=== PATIENT | female | born 1960 | race Caucasian/White ===

== ENCOUNTER → 2017-10-05 08:33 | Day surgery (SDC) | payer MEDICARE ==
[~2017-10-05 08:33] MED LIST: Aspirin 81 mg CHEW TAB* 81 MG TAB.CHEW ONE; Diazepam TAB(*) 5 MG ONE; Iohexol 350 (CONTRAST) 200 ML MDV IV ONE; Lidocaine 1% INJ* 10 MG/ML 30 ML SDV ONE; Midazolam* 1 MG/ML 10 ML VIAL (10 MG) ONE; NS 0.9% 1000 ML* 1,000 ML IV SCH; diPHENhydraMINE PO* 25 MG ONE; fentaNYL* 50 MCG/ML 2 ML VIAL (100 MCG VIAL) ONE; nitroGLYCERIN DRIP* 25,000 MCG/250 ML BTL ONE
[2017-10-05 14:17] VITALS: BP 134/90
--- NOTE | 2017-10-05 14:48 | CATH ---
CC: Dr. Archie Mackay; Dr. Frederic Barnhart.* CARDIAC CATHETERIZATION REPORT: DATE OF PROCEDURE: 10/05/17 INDICATION FOR PROCEDURE: The patient with continued chest discomfort with history of normal Lexiscan stress test in the past, now for definitive assessment of coronary anatomy with ongoing chest discomfort episodes on single drug medical management. PROCEDURE: Left heart catheterization, left ventriculography, coronary arteriography. The patient was interviewed and examined in the holding area of the catheterization lab where the risks and benefits were explained. She understood them and wished to proceed. PRE-CATH LABORATORY RESULTS: Hemoglobin and hematocrit of 15.5 and 44. BUN and creatinine of 8 and 0.8, INR 0.9, potassium 4.5. EQUIPMENT UTILIZED: 1. Left femoral artery sheath, 5-[place] 11 cm sheath. 2. Diagnostic coronary catheters, 5-[place] FL4 and FR4 curve diagnostic catheters. 3. Left heart catheter, a 5-[place] angled pigtail catheter. 4. Closure device, a 5-[place] Mynx closure device. MEDICATIONS GIVEN DURING THE PROCEDURE: Included oral Benadryl and Valium in the holding area as well as intravenous Versed and intracoronary nitroglycerin. DESCRIPTION OF PROCEDURE: The patient was brought to the cardiovascular laboratory where a formal time-out was performed. She was prepped and draped in sterile fashion. The left coronary artery was anesthetized with 1% lidocaine. Left femoral artery was cannulated and the introducer was placed. Coronary arteriography was performed utilizing the 5-[place] FL4 curve and FR4 curve diagnostic catheters. Of note, the patient received intracoronary nitroglycerin into the right coronary artery to reassess the proximal narrowing. Following this, left heart catheterization was performed using an angled pigtail catheter advanced to the ascending aorta where pressure was recorded. The catheter was passed across the aortic valve and the left ventricle where the left ventricular pressure was recorded. Left ventriculography was performed utilizing a power injection of 24 cc of Omnipaque dye at a rate of 12 cc. The catheter was pulled back across the aortic valve to recheck gradient. At the end of the case, an injection was made to the right femoral sheath to assess eligibility to utilize closure device. It was found to be acceptable for this, and as such, a 5-[place] Mynx closure device was deployed with good hemostasis. Total contrast used was 90 cc of Omnipaque dye. The radiation exposure included 4.5 minutes of fluoro time. The air kerma radiation was 621 milligray. The DAP radiation was 3566 microgray per sq.m. RESULTS: LEFT HEART CATHETERIZATION: -Central aortic pressure recorded at 131/83 with a mean of 104. Left ventricular pressure 135 over left ventricular end diastolic pressure of 10. LEFT VENTRICULOGRAPHY: - performed in the PRATER projection revealed a symmetrical contraction in the left ventricle with no focal wall-motion abnormalities. The overall ejection fraction noted to be 55% to 60%. CORONARY ARTERIOGRAPHY: A. Left coronary artery: 1. Left main - calcium was seen in the very distal left main with no significant reduction in luminal caliber. 2. LAD - The proximal LAD had heavy calcification seen. There was mild luminal irregularities, but no significant stenosis. Of note, the true caliber of the vessel given the calcium is difficult to assess, but it showed no significant narrowing compared to continuation of the mid LAD area. There was a very small diffusely narrowed short first diagonal branch. The second diagonal branch had a 35% mid narrowing with it. 3. Circumflex artery - A nondominant vessel supplying a trifurcated marginal branch followed by multiple thin obtuse marginal branches ending in the low lying posterior left ventricular branch. There was a 15% distal mild narrowing seen. B. Right coronary artery - A dominant vessel supplying the PDA and 1 posterior left ventricular branch with perhaps a very small caliber threadlike short last posterior left ventricular branch. The proximal area of the right coronary artery was noted to have a 50% narrowing noted in it that remained unchanged after intracoronary nitroglycerin was administered. There was mild haze just prior to and at the takeoff of the PDA with a narrowing of 35%. The posterior left ventricular branch was noted to have a mid distal narrowing of 80 % noted in a very thin caliber portion of the vessel, which appeared to be under 1.5 mm in diameter. OVERALL ASSESSMENT: Normal left ventricular systolic function with moderate proximal right coronary artery disease and a significant 80% lesion in the mid to distal portion of the posterior left ventricular branch, a vessel size that is not amenable to any type of intervention and subtends a relatively small amount of myocardium. Mild disease seen throughout this left system with calcium noted in the proximal LAD. Clearly at this point in time, medical management is most appropriate with regard to aggressive risk factor management as her cholesterol currently is not well controlled with an LDL in the 160 range. She continues to smoke and needs to stop that as well and we had a lengthy discussion about all of these risk factors and the importance of having to stop smoking in order to avoid further progression, especially in the proximal right coronary artery as well as proximal LAD. She understood this and will be following up with Dr. Barnhart in less than a week's time to go over these results and make further recommendations. I asked her to make sure she takes at least a baby aspirin every day and she will be starting that as well. I urged her to stop smoking as well and make sure she is faithfully taking 40 mg of atorvastatin. Further management will be made for her cardiac status through Dr. Frederic Barnhart and Dr. Archie Mackay. [id number]/[facility] #: [id number] JUICE
== END | disposition home or self-care (01) ==
LOC: CHICATH 08:33
PROVIDERS: ATTEND Internal Medicine Cardiovascular Disease
DX: I20.0 Unstable angina (principal); I25.10 Atherosclerotic heart disease of native coronary artery without angina pectoris; Z72.0 Tobacco use; I73.89 Other specified peripheral vascular diseases; J44.9 Chronic obstructive pulmonary disease, unspecified; E78.5 Hyperlipidemia, unspecified; M81.0 Age-related osteoporosis without current pathological fracture; F31.89 Other bipolar disorder; F10.21 Alcohol dependence, in remission; I73.00 Raynaud's syndrome without gangrene
CPT/HCPCS: 93458; A9270-GY; C1887; J2250; J3010

== ENCOUNTER 2018-03-21 14:27 | Emergency (ER) | payer MEDICARE ==
[2018-03-21 14:56] VITALS: BP 147/94
--- NOTE | 2018-03-21 15:15 | UC ---
Lower Extremity/Ankle HPI - HPI Summary HPI Summary: patient with pain in the right foot for the last week. hx. of low back pain , this pain in her foot is new, no associated dysesthesia in the foot. no hx. of gout or trauma - History of Current Complaint Chief Complaint: UCLowerExtremity Stated Complaint: FOOT PAIN Time Seen by Provider: 03/21/18 15:03 Hx Obtained From: Patient ?: No Onset/Duration: Gradual Onset, Lasting Days Severity Initially: Moderate Severity Currently: Moderate Pain Intensity: 7 Aggravating Factor(s): Standing Alleviating Factor(s): Rest, Elevation Able to Bear Weight: Yes - Risk Factors Gout Risk Factors: Age Over 40, Obesity DVT Risk Factors: Negative Septic Arthritis Risk Factor: Negative - Allergies/Home Medications Allergies/Adverse Reactions: Allergies Allergy/AdvReac Type Severity Reaction Status Date / Time No Known Allergies Allergy Verified 03/21/18 14:56 Home Medications: Home Medications Aspirin 81 mg CHEW TAB* [Aspirin Low Dose TAB*] 81 mg PO DAILY 03/21/18 [ History Confirmed 03/21/18] Umeclidin/Vilant 62.5 MDI(NF) [ANORO 62.5/25 Ellipta DEVICE (NF)] 1 aer IN 03/21 [History] PMH/Surg Hx/FS Hx/Imm Hx Previously Healthy: Yes - Surgical History Surgical History: Yes Surgery Procedure, Year, and Place: tonsillectomy, left rotator cuff, left leg lac, cyst removed from ovary, lesion from exterior head around temperal area removed (plastic surgeron/skin), - Social History Alcohol Use: None Substance Use Type: None Smoking Status (MU): Light Every Day Tobacco Smoker Type: Cigarettes Review of Systems Constitutional: Negative Skin: Negative Eyes: Negative ENT: Negative Respiratory: Negative Cardiovascular: Negative Gastrointestinal: Negative Genitourinary: Negative Motor: Decreased ROM Neurovascular: Negative Musculoskeletal: Other: - pain right foot Neurological: Negative Psychological: Negative Is Patient Immunocompromised?: No All Other Systems Reviewed And Are Negative: Yes Physical Exam Triage Information Reviewed: Yes Appearance: Pain Distress Vital Signs: Initial Vital Signs Temp 36.2 C 03/21/18 14:52 Pulse 78 03/21/18 14:52 Resp 18 03/21/18 14:52 BP 147/94 03/21/18 14:52 Pulse Ox 97 03/21/18 14:52 Vital Signs Reviewed: Yes Eye Exam: Normal ENT Exam: Normal ENT: Positive: Normal ENT inspection Musculoskeletal: Positive: Other: - decreased pulses below popliteal in both legs, good capillary filling in the right foot, minimal swelling noted in the dorsum of the forefoot, tender to palpation. no erythema noted Neurological: Positive: Other: - decreased ankle jerks noted, no sensory abnormality noted to light touch , good strength on dorsiflexion and plantar flexion, ankle inversion and eversion, normal heel walking, unable to walk on toes. Lower Extremity Course/Dx - Differential Dx/Diagnosis Provider Diagnoses: L4-L5 radiculopathy causing foot pain Discharge - Sign-Out/Discharge Documenting (check all that apply): Patient Departure All imaging exams completed and their final reports reviewed: Yes - Discharge Plan Condition: Good Disposition: HOME Patient Education Materials: Lumbar Radiculopathy (ED) Referrals: Archie Mackay MD [Primary Care Provider] - Additional Instructions: nsaids, PT, MRi lumbar spine to assess for need for surgical intervention - Billing Disposition and Condition Condition: GOOD Disposition: Home
--- NOTE | 2018-03-21 15:50 | RAD ---
HISTORY: pain right foot COMPARISONS: None VIEWS: 3 , Frontal, lateral, and oblique views of the right foot FINDINGS: BONE DENSITY: Normal. BONES: There is no displaced fracture. 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 ALIGNMENT: There is no dislocation. SOFT TISSUES: Unremarkable. OTHER FINDINGS: None. IMPRESSION: NO ACUTE OSSEOUS INJURY. IF SYMPTOMS PERSIST, RECOMMEND REPEAT IMAGING.
== END 2018-03-21 16:10 | disposition home or self-care (01) ==
LOC: UCEAST 14:27
DX: M54.16 Radiculopathy, lumbar region (principal); M79.671 Pain in right foot; Z79.82 Long term (current) use of aspirin; F17.210 Nicotine dependence, cigarettes, uncomplicated
CPT/HCPCS: 99211; G0463

== ENCOUNTER 2020-11-19 08:20 | Observation (INO) ==
[2020-11-19 09:40] LABS: ABS Basophils 0.1 10^3/ul (0-0.2); ABS Eosinophils 0.1 10^3/ul (0-0.6); ABS Lymphocytes 2.1 10^3/ul (1.0-4.8); ABS Monocytes 0.6 10^3/ul (0-0.8); Eosinophil % 1.7 %; Hematocrit 44 % (35-47); Hemoglobin 15.3 g/dL (12.0-16.0); Lymphocyte % 26.8 %; Mean Corpuscular HGB Conc 34 g/dL (31-36); Mean Corpuscular Hemoglobin 32 pg (27-31); Mean Corpuscular Volume 91 fL (80-97); Mean Platelet Volume 7.6 fL (7.4-10.4); Platelet Count 294 10^3/uL (150-450); Red Blood Count 4.85 10^6 /uL (3.70-4.87); Red Cell Distribution Width 14 % (10-15)
[2020-11-19 09:53] LABS: ALT 25 U/L (7-52); AST 18 U/L (13-39); Albumin 3.8 g/dL (3.2-5.2); Albumin/Globulin Ratio 1.3 (1-3); Alkaline Phosphatase 112 U/L (35-149); Anion Gap 4 mmol/L (2-11); Blood Urea Nitrogen 11 mg/dL (6-24); CO2 Carbon Dioxide 26 mmol/L (22-32); Calcium 9.2 mg/dL (8.6-10.3); Chloride 109 mmol/L (101-111); EGFR African American 70.3 (>60); EGFR Non-African American 58.1 (>60); Globulin 2.9 g/dL (2-4); Glucose 89 mg/dL (70-100); Potassium 4.2 mmol/L (3.5-5.0); Sodium 139 mmol/L (135-145); Total Protein 6.7 g/dL (6.4-8.9)
[2020-11-19 09:59] LABS: Troponin I 0.07 ng/mL (<0.03)
[2020-11-19] MEDS ORDERED: Magnesium Hydroxide LIQ 30 ML UDC PO PRN (11:47)
[2020-11-19] MEDS ORDERED: Al Hydrox/Mg Hydrox/Simet LIQ 30 ML UDC PO PRN (11:47)
[2020-11-19] MEDS ORDERED: HYDROcodone/ACETAMIN 5/325 mg TAB PO PRN (11:53)
[2020-11-19 12:17] LABS: Creatine Kinase 197 U/L (10-223)
[2020-11-19 12:49] LABS: Activated Partial Thrombo Time 39.8 seconds (26.0-38.0); INR 0.97 (0.82-1.09)
[2020-11-19 16:00] LABS: Troponin I 0.07 ng/mL (<0.03)
[2020-11-19] MEDS ORDERED: Nicotine GUM 4MG FRUIT FLAVOR PO PRN (17:37)
[2020-11-20] MEDS ORDERED: Aminophylline 25 MG/ML VIAL ONE (07:45)
[2020-11-20] MEDS ORDERED: Regadenoson 0.4 MG/5 ML SYRINGE ONE (07:45)
[2020-11-20] MEDS ORDERED: FLUTICAS/UMECLI/VILANT 100-62.5-25 MDI (NF) INH SCH (09:00)
[2020-11-20 13:39] VITALS: BP 153/82
== END 2020-11-20 14:30 | disposition home or self-care (01) ==
LOC: ED 08:20 → MEDTELE 08:20 → ED 13:24
PROVIDERS: ADMIT Internal Medicine; ATTEND Internal Medicine